=== PATIENT | male | born 1990 | race African-American/Black ===

== ENCOUNTER 2023-08-19 11:37 | Emergency (ER) | payer OTHER, SELFPAY ==
[2023-08-19 11:48] VITALS: BP 149/92; PULSE 110; RESP 18; TEMP 37.7; O2SAT 100; BMI 23.7
[2023-08-19] MEDS: Acetaminophen 325 MG TABLET 975 MG PO (12:21)
[2023-08-19 12:26] LABS: IDNOW Serial# 08D9AD1C; Strep A Nucleic Acid Positive (Negative)
[2023-08-19 12:58] LABS: Influenza A PCR NEGATIVE (Negative); Influenza B PCR NEGATIVE (Negative); Resp Syncy Virus RNA Qual PCR NEGATIVE (Negative); SARS COV2 PCR INHOUSE NEGATIVE (Negative)
--- NOTE | 2023-08-19 13:24 | ED_ITS ---
HPI - General Adult General Chief complaint: Upper Respiratory Symptoms Stated complaint: Flu symptoms, sore throat Time Seen by Provider: 08/19/23 11:54 Source: patient and RN notes reviewed Mode of arrival: ambulatory Limitations: no limitations History of Present Illness HPI narrative: This is a 32-year-old [place]-speaking male, who presents emergency department with complaints of subjective fever and sore throat yesterday. Patient also endorsing slight body aches and headache. He denies any congestion, cough, chest pain. He is able to eat and drink without difficulty. He has been taking Tylenol without any relief. No sick contacts. Reports that the sore throat worsens with swallowing. Other complaints or concerns at this time. MD complaint: Sore throat, subjective fevers Onset (ago): day(s) Radiation: non-radiation Quality: aching Pain Consistency: constant Relieving factors: none Exacerbating factors: none Associated symptoms: denies other symptoms Treatments prior to arrival: none Related Data Previous Rx's ?Medication ?Instructions ?Recorded acetaminophen 325 mg capsule 650 mg (2 x 325 mg) PO Q6H PRN 08/19/23 (Tylenol) fever or pain #30 caps amoxicillin 500 mg capsule 500 mg PO BID 10 days #20 caps 08/19/23 ibuprofen 600 mg tablet 600 mg PO Q6H PRN fever or pain 08/19/23 #30 tabs Allergies Allergy/AdvReac Type Severity Reaction Status Date / Time No Known Allergies Allergy Verified 08/19/23 11:51 Review of Systems Review of Systems: Yes all other systems are reviewed and are negative Constitutional: Constitutional: Reports as per [facility] Past Medical History Attestation statement: The following information was validated with the patient. Social History Social History Advance Directives: No Advance Directives Information Provided: Yes Physical Exam ED Vital Signs: Vital Signs - 24 hr 08/19/23 11:48 08/19/23 13:32 Temperature 99.9 F 99.6 F Pulse Rate 110 H 89 Respiratory Rate 18 16 Blood Pressure 149/92 H 135/90 H Pulse Oximetry 100 95 Oxygen Delivery Method Room Air Room Air BMI result Body Mass Index 23.7 Const General: cooperative, comfortable and no acute distress Orientation/consciousness: patient oriented x3 Limitations: no limitations HENMT Other: Oropharynx is mildly erythematous, with mild tonsillar hypertrophy, no exudates. Uvula is midline, speaking full sentences, no trismus, drooling, or dysphonia. Head: Yes normal to inspection, Yes normocephalic and Yes atraumatic Ears: hearing grossly normal bilaterally General nose exam: Normal external nose present Face and sinus: Yes normal facial exam Mouth: Normal oral and palatal mucosa present, oropharynx normal and moist mucous membranes Throat: Yes posterior oropharynx normal Eyes General: appearance normal, both eyes and all related structures Eyelids: Yes eyelids normal Conjunctivae: conjunctivae normal Sclerae: sclerae normal Pupils: Equal, round and reactive pupils present EOM: EOMs intact bilaterally Neck Neck: Yes normal visual inspection, Yes full ROM and Yes no lymphadenopathy Lymphatic: no lymphadenopathy noted Chest Chest palpation & inspection: normal inspection of the chest Resp Effort & Inspection: normal respiratory effort and able to speak in complete sentences Auscultation: clear to auscultation bilaterally, no crackles, no rales, no rhonchi and no wheezes Cardio Rate: regular rate Rhythm: regular rhythm Heart sounds: S1 normal heart sound present and S2 normal heart sound present GI Inspection: Yes normal to inspection Skin General skin exam: no rashes or lesions noted Trauma: no lacerations or abrasions Wounds: no wounds Neuro General: patient oriented x3 and moves all extremities Cranial nerves: Yes Equal, round and reactive pupils present Extrem General: Yes normal to inspection Right upper extremity: normal to inspection Left upper extremity: normal to inspection Right lower extremity: normal to inspection Left lower extremity: normal to inspection Medications Administered Discontinued Medications Generic Name Dose Route Start Last Admin Trade Name Freq PRN Reason Stop Dose Admin Acetaminophen 975 mg 08/19/23 12:08 08/19/23 12:21 Acetaminophen 325 Mg Tablet PO 08/19/23 12:09 975 mg ONCE ONE Administration Medical Decision Making Medical Decision Making MDM Narrative: This is a 32-year-old male presenting to the emergency department with compl aints of fever and sore throat since yesterday. On arrival, patient mildly tachycardic however repeat vital signs revealing no tachycardia. Patient with erythematous posterior oropharynx, no tonsillar hypertrophy or exudates. No trismus, drooling, or dysphonia. Differential diagnoses include strep pharyngitis, peritonsillar abscess, tonsillitis. Swabs were collected, patient tested positive for strep pharyngitis, treated with amoxicillin. Given return precautions. Patient understands and agrees with plan. Patient stable for discharge Differential Diagnosis Differential Diagnoses: The differential diagnosis associated with the presentation includes See above Admission/Observation Consideration of admission/observation: Escalation of care including admission/observation considered Escalation of care including admission/observation considered however given workup today not warranted at this time. Lab Data MDM Lab Attestation statement: I reviewed the patient's lab results. Strep positive Labs: Lab Results 08/19/23 Range/Units 12:15 Influenza Type A (PCR) NEGATIVE (Negative) Influenza Type B (PCR) NEGATIVE (Negative) RSV RNA Qual (PCR) NEGATIVE (Negative) SARS-CoV-2 RNA (RT-PCR) NEGATIVE (Negative) S. pyogenes GrpA HARJINDER Positive A (Negative) Discharge Plan Discharge Clinical Impression: Strep pharyngitis Patient Disposition: Home, Self-Care Instructions: Strep Throat (ED) Additional Instructions: Your seen in the emergency department due to a sore throat. You tested positive for strep throat. Strep throat as a bacterial infection that requires antibiotics for. Please take prescribed antibiotic as directed, finish the entire course even if you are feeling better. You tested negative for COVID, RSV, and flu. Alternate between ibuprofen and Tylenol as needed for pain and symptoms Throw away your toothbrush after being on the antibiotics for 48 hours. Saltwater gargles, warm tea with honey, warm soaps can also help with your symptoms. If any new or worsening symptoms occur including but not limited to worsening sore throat, fevers, chills, chest pain, shortness for breath, please return for re-evaluation. Prescriptions: New amoxicillin 500 mg capsule 500 mg PO BID 10 Days Qty: 20 0RF ibuprofen 600 mg tablet 600 mg PO Q6H PRN (Reason: fever or pain) Qty: 30 0RF acetaminophen [Tylenol] 325 mg capsule 650 mg PO Q6H PRN (Reason: fever or pain) Qty: 30 0RF Interventions: ED Discharge Assessment Last Done: 08/19/23 13:32 Discharge Date/Time: 08/19/23 13:33 Print Language: Citizen Of [place]
[2023-08-19 13:32] VITALS: BP 135/90; PULSE 89; RESP 16; TEMP 37.6; O2SAT 95
== END 2023-08-19 13:33 | disposition home or self-care (01) ==
PROVIDERS: Physician Assistant Medical; Emergency Provider Student in an Organized Health Care Education/Training Program
DX: J02.0 Streptococcal pharyngitis (principal)
CPT/HCPCS: 0241U; 87651; 99283

== ENCOUNTER → 2024-01-31 14:42 | Outpatient (BNVA) | payer SELFPAY | PROVIDERS: Visit Provider Physician Assistant Medical | DX: Z02.79 Encounter for issue of other medical certificate (principal) ==